=== PATIENT | male | born 1945 | race Caucasian/White ===

== ENCOUNTER → 2018-12-14 | Outpatient (CLI) | payer MEDICARE, OTHER ==
[2018-12-14 09:23] LABS: HEMATOCRIT 48.7 % (42.0-52.0); MCH 30.3 pg (26.0-34.0); MCHC 34.8 g/dL (28.0-37.0); MCV 86.8 fL (80.0-100.0); MPV 7.4 fl. (7.2-11.1); RBC 5.61 mil/uL (4.50-6.00); RDW-CV 13.2 % (10.5-14.5); WBC 6.8 thou/uL (4.0-11.0)
[2018-12-14 09:38] LABS: ALBUMIN 4.1 g/dL (3.4-5.0); ALKALINE PHOSPHATASE 84 U/L (46-116); ANION GAP 10 mmol/L (7-16); BUN 11 mg/dL (7-18); CALCIUM 9.5 mg/dL (8.5-10.1); CHLORIDE 104 mmol/L (98-107); CHOLESTEROL 179 mg/dL (<200); CO2 27 mmol/L (21-32); CREATININE 1.1 mg/dL (0.6-1.3); GLUCOSE 132 mg/dL (70-99); HDL CHOLESTEROL 39 mg/dL (>40); LDL CHOLESTEROL 84 mg/dL (<100); POTASSIUM 4.1 mmol/L (3.5-5.1); SGOT 28 U/L (15-37); SGPT 42 U/L (30-65); SODIUM 141 mmol/L (136-145); TC:HDL 4.6 Ratio (Not establshd); TOTAL BILIRUBIN 0.9 mg/dL (<0.1-1.0); TOTAL PROTEIN 7.8 g/dL (6.4-8.2); TRIGLYCERIDE 281 mg/dL (<150); VLDL 56 mg/dL (<40)
[2018-12-14 10:33] LABS: SERUM ASSESSMENT Clear
== END ==
LOC: M.LAB 08:03
PROVIDERS: Internal Medicine
DX: E11.9 Type 2 diabetes mellitus without complications (principal); E78.5 Hyperlipidemia, unspecified; E03.9 Hypothyroidism, unspecified; Z79.84 Long term (current) use of oral hypoglycemic drugs; Z12.5 Encounter for screening for malignant neoplasm of prostate

== ENCOUNTER 2019-07-13 05:24 | Observation (INO) | payer MEDICARE, OTHER ==
[~2019-07-13] VITALS: Ht 172.7 cm; Wt 95.3 kg
[2019-07-13 05:27] VITALS: BP 173/100
[2019-07-13 05:49] LABS: ABSOLUTE EOSINOPHILS 0.2 thou/uL (0.0-0.7); ABSOLUTE LYMPHOCYTES 2.2 thou/uL (0.8-5.3); ABSOLUTE MONOCYTES 0.5 thou/uL (0.0-1.2); ABSOLUTE NEUTROPHILS 5.4 thou/uL (1.6-8.1); BASOPHILS 0.3 %; EOSINOPHILS 2.3 %; HEMATOCRIT 45.8 % (42.0-52.0); HEMOGLOBIN 15.7 gm/dL (14.0-18.0); LYMPHOCYTES 26.4 %; MCH 28.6 pg (26.0-34.0); MCHC 34.2 g/dL (28.0-37.0); MCV 83.5 fL (80.0-100.0); MONOCYTES 5.8 %; MPV 7.8 fl. (7.2-11.1); NUCLEATED RBCS 0 /100WBC; PLATELET COUNT* 185 thou/uL (150-400); POLYS 65.2 %; RBC 5.49 mil/uL (4.50-6.00); WBC 8.3 thou/uL (4.0-11.0)
[2019-07-13 06:04] LABS: CALCIUM 9.6 mg/dL (8.5-10.1); CREATININE 1.3 mg/dL (0.6-1.3); POTASSIUM 4.2 mmol/L (3.5-5.1)
[2019-07-13 06:15] LABS: ALBUMIN 3.9 g/dL (3.4-5.0); MAGNESIUM 1.9 mg/dL (1.8-2.4); TOTAL BILIRUBIN 0.5 mg/dL (<0.1-1.0)
--- NOTE | 2019-07-13 09:29 | NUR ---
UNABLE TO GIVE PANTOPRAZOLE AT SCHEDULED TIME R/T PHARMACY OUT OF MED
[2019-07-13 09:41] VITALS: BP 142/83
[2019-07-13 14:02] VITALS: BP 128/78
[2019-07-13 14:30] VITALS: BP 142/83
[2019-07-13 15:00] VITALS: BP 117/70
[2019-07-13] MEDS ORDERED: BACLOFEN 10MG T10 MG PO (17:46)
[2019-07-13] MEDS ORDERED: GLIPIZIDE 10 MG10 MG PO (17:48)
[2019-07-13] MEDS ORDERED: GLUCOPHAGE1000 MG PO (17:50)
[2019-07-13] MEDS ORDERED: ZOCOR40 MG PO (17:51)
[2019-07-13] MEDS ORDERED: NEURONTIN300 MG PO (17:51)
[2019-07-13] MEDS ORDERED: LEVO-T50 MCG PO (17:52)
[2019-07-13] MEDS ORDERED: JARDIANCE25 MG PO (17:52)
--- NOTE | 2019-07-13 18:42 | NUR ---
PT ADMITTED TO ROOM 223 AND BROUGHT UP TO FLOOR AT 1500 VIA W/ NURSING STAFF, REPORT RECEIVED FROM DILIP RAMOS. PT STATES HE IS CURRENTLY HAVING NO CHEST PAIN, JUST SOME INDIGESTION. PT ORIENTED TO ROOM AND CALL LIGHT, ADMISSION ASSESSMENT AND HX COMPLETED CHARTED. SEPSIS SCREENING COMPLETED, NEGATIVE. HOME MEDS RECONCILED W/ . 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 PT GOAL IS TO REMAIN FREE FROM CHEST PAIN OVERNIGHT AND DC TO HOME IN THE MORNING, F/U W/ CARDIOLOGY OUTPT FOR STRESS TEST. MED PER APR, HOURLY ROUNDING OBSERVED, PT UP AD LUIS, WILL CONTINUE POC.
[2019-07-13 20:00] VITALS: BP 132/88
[2019-07-14] VITALS (7 sets, daily range): BP systolic 94–122; BP diastolic 54–81
[2019-07-14 05:33] LABS: ABSOLUTE EOSINOPHILS 0.2 thou/uL (0.0-0.7); ABSOLUTE MONOCYTES 0.5 thou/uL (0.0-1.2); ABSOLUTE NEUTROPHILS 3.6 thou/uL (1.6-8.1); BASOPHILS 0.6 %; EOSINOPHILS 3.8 %; HEMATOCRIT 44.8 % (42.0-52.0); HEMOGLOBIN 15.3 gm/dL (14.0-18.0); LYMPHOCYTES 31.4 %; MCH 28.6 pg (26.0-34.0); MCHC 34.2 g/dL (28.0-37.0); MCV 83.6 fL (80.0-100.0); MONOCYTES 7.5 %; MPV 7.9 fl. (7.2-11.1); NUCLEATED RBCS 0 /100WBC; PLATELET COUNT* 197 thou/uL (150-400); POLYS 56.7 %; RBC 5.36 mil/uL (4.50-6.00); RDW-CV 14.2 % (10.5-14.5); WBC 6.4 thou/uL (4.0-11.0)
[2019-07-14 05:52] LABS: ANION GAP 10 mmol/L (7-16); BUN 16 mg/dL (7-18); CALCIUM 8.4 mg/dL (8.5-10.1); CHLORIDE 103 mmol/L (98-107); CHOLESTEROL 169 mg/dL (<200); CO2 26 mmol/L (21-32); GLUCOSE 171 mg/dL (70-99); HDL CHOLESTEROL 36 mg/dL (>40); LDL CHOLESTEROL 58 mg/dL (<100); POTASSIUM 3.6 mmol/L (3.5-5.1); SODIUM 139 mmol/L (136-145); TC:HDL 4.7 Ratio (Not establshd); TRIGLYCERIDE 377 mg/dL (<150); TROPONIN-I LEVEL <0.06 ng/mL (<0.06); VLDL 75 mg/dL (<40)
[2019-07-14 05:53] LABS: SERUM ASSESSMENT Slight Lipemia
--- NOTE | 2019-07-14 06:55 | NUR ---
ASSESSMENTS COMPLETED AT BEDSIDE, PLEASE REFER TO CHARTING. MEDICATIONS ADMINISTERED PER MAR. HOURLY ROUNDING COMPLETED FOR SAFETY. CALL LIGHT WITHIN REACH. ALL NEEDS MET AT THIS TIME.
--- NOTE | 2019-07-14 09:50 | NUR ---
ASSUMED CARE OF PT AT 0730. PT SITTING UP IN RECLINER WAITING FOR BREAKFAST. A&0X4, DENIES ANY PAIN OR SHORTNESS OF BREATH AT THIS TIME. PT STATES HE HAD SOME HEARTBURN OVERNIGHT. PT STATES HE IS READY TO GO HOME. CARDIOLOGY CONSULT IN PLACE. 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 ON RA SAT 98%. PT UP AD LUIS IN ROOM. PT GOAL FOR TODAY IS REMAIN FREE FROM CHEST PAIN AND POSSIBLE DISCHARGE HOME WITH OUTPT STRESS TEST. AM ASSESSMENT CHARTED. MEDICATIONS PER APR. PT REPOSITIONS SELF. HOURLY ROUNDING OBSERVED. BED IN LOW POSITION. CALL LIGHT WITHIN REACH. WILL CONTINUE PLAN OF CARE.
[2019-07-14] MEDS ORDERED: NITROSTAT0.4 M1 SUBLING (10:49)
[2019-07-14] MEDS ORDERED: ASA81BEC PO (10:50)
[2019-07-14] MEDS ORDERED: ACETAMINOPHEN650 M5 PO (10:53)
--- NOTE | 2019-07-14 18:03 | NUR ---
NO ACUTE CHANGES THROUGHOUT SHIFT. REFER TO CHARTING. PT TO HAVE STRESS TEST IN AM PER CARDIOLOGY. PT NPO AFTER MIDNIGHT. PT DENIES ANY CHEST PAIN OR SHORTNESS OF BREATH THROUGHOUT SHIFT. PT UP TO CHAIR FOR MEALS AND ABULATED IN HALLWAY THIS AFTERNOON-TOLERATED WELL. MEDICATIONS PER APR. PT REPOSITIONS SELF. HOURLY ROUNDING OBSERVED. BED IN LOW POSITION. CALL LIGHT WITHIN REACH. WILL CONTINUE PLAN OF CARE.
[2019-07-15 00:10] VITALS: BP 115/64
[2019-07-15 02:08] LABS: GLYCOHEMOGLOBIN (HGB A1C) 8.8 % (4.8-5.6)
[2019-07-15 04:05] VITALS: BP 125/75
--- NOTE | 2019-07-15 06:02 | NUR ---
RECEIVED REPORT AND ASSUMED CARE OF PATIENT AT 1900. VSS. NO ACUTE CHANGES THROUGHOUT SHIFT. ALL ROUNDINGS COMPLETED, ALL NEEDS MET, FULL ASSESSMENT COMPLETED CHARTED.
[2019-07-15 08:12] VITALS: BP 129/76
--- NOTE | 2019-07-15 09:02 | NUR ---
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 PT IS SCHEDULED FOR CARDIAC STRESS TEST TODAY AT 1000 AND HAS BEEN NPO SINCE MIDNIGHT. PT GOAL IS TO COMPLETE STRESS TEST AND THEN WORK ON DC PLANNING TO HOME LONG STRESS TEST COMES BACK NEGATIVE. AM ASSESSMENT CHARTED, MEDS PER MAR, HOURLY ROUNDING OBSERVED, PT IS UP AD LUIS, WILL CONTINUE POC.
[2019-07-15 12:00] VITALS: BP 120/78
--- NOTE | 2019-07-15 12:50 | CON ---
[address] [address] CONSULTATION Name: SARAHY ADAN Room: [address] Luke Rodriguez#: [id number] Admission: 07/13/19 Attend Phys: Alvaro Woods Discharge: Date of : 45 Report #: [id number] THIS REPORT FOR: //name// cc: Jc Rowe MD, Syed MD ~ THIS REPORT FOR: //name// CC: Ernestina Rowe MD DATE OF SERVICE: 07/13/2019 CARDIOLOGY CONSULTATION HISTORY OF PRESENT ILLNESS: The patient is a 74-year-old white male who I was asked to see in the Emergency Room after he complained of chest pain. The patient has no previous history of heart disease. He stays fairly active and apparently had a stress test in the past. He states recently he was taking Jardiance, but developed a discomfort in his lower abdomen. He was taken off Jardiance and the discomfort resolved. He notes that last night he was asleep when at 1:00 in the morning, he awakened with a burning in his chest, went into his jaw. It felt as it is hard to take a deep breath. He felt somewhat nauseated. Denied any diaphoresis. He took some Tums and tried to belch. Discomfort persisted. He finally drove here to [facility]. The discomfort lasted about 4 hours. It is now improved, but still there. He notes about 3 weeks ago, also had burning in his chest, lasted about 2 hours, resolved. He has had no recent blood in the stool or vomiting. He has had no fever or cough. Denied trauma to his chest or rash. He denies exertional dyspnea, palpitations or syncope. He has noted some fatigue recently. PAST MEDICAL HISTORY: He has had a cholecystectomy, thyroid surgery, hemorrhoids surgery. He has a history of diabetes, hyperlipidemia. No history of hypertension. MEDICATIONS: Include metformin, Zocor, glipizide. FAMILY HISTORY: His father had a heart attack. SOCIAL HISTORY: He is . He and his live in [place]. 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 Quit smoking years ago, rarely drinks alcohol. REVIEW OF SYSTEMS: No history of stroke, asthma, liver disease, kidney disease. He had a skin cancer removed in the past. No psychiatric illness. PHYSICAL EXAMINATION: [place] [address] CONSULTATION Name: SARAHY ADAN Room: [address] Jennifer#: [id number] Admission: 07/13/19 Attend Phys: Alvaro Woods Discharge: Date of : 45 Report #: [id number] GENERAL: Revealed an elderly male who appeared in no distress. VITAL SIGNS: Blood pressure 120/70, his pulse was 90. He was afebrile. HEENT: He was anicteric. Conjunctivae pink. Mucous membranes moist. NECK: Veins nondistended. No carotid bruits. CHEST: Clear to auscultation. CARDIOVASCULAR: Regular rate and rhythm. No rub. ABDOMEN: Soft. EXTREMITIES: Had no edema. Posterior tibial pulse 2+ bilaterally. SKIN: Cool and dry. NEUROLOGIC: Nonfocal. RADIOLOGICAL DATA: His ECG showed a sinus rhythm, evidence of previous inferior infarction, but there was no significant ST or T-wave change noted. His workup last night in the Emergency Room, he had a portable chest x-ray that showed normal heart size and clear lung thomas. LABORATORY WORK: Sodium 138, potassium 4.2, creatinine 1.3, glucose 245. His liver function studies were normal. Troponin he had 2 sets less than 0.06. His white blood cell count 8.3, hemoglobin 15.7. IMPRESSION AND RECOMMENDATIONS: 1. Chest pressure. Possible gastroesophageal reflux disease. No evidence of acute myocardial infarction. Recommend observation. If the patient remains stable, we will consider discharging the patient for an outpatient stress test. Because of his abnormal ECG, I would consider a nuclear stress test. 2. Diabetes. 3. Hyperlipidemia. The patient is on a statin drug. <ELECTRONICALLY SIGNED> By: Man Nuno MD, FACC 07/15/19 1250 0915 [id number] Nuno MD, FAC /nt
--- NOTE | 2019-07-15 15:37 | EKG ---
[place] [address] ELECTROCARDIOGRAM REPORT Name: SARAHY ADAN Room: [address] M.R.#: [id number] Admission: 07/13/19 Attend Phys: Ernestina Barriga Discharge: Date of : 45 Date of Service: 07/13/19 0525 Report #: [id number] THIS REPORT FOR: //name// [facility] ED Test Date: 2019-07-13 Test Time: 05:25:49 Pat Name: SARAHY ADAN Department: Room: [facility] Gender: M Gray Tender: : 1945 Requested By: Jcarlos Boogie Order Number: [id number] MD: Mina Adam Measurements Intervals [place] Rate: 87 P: 39 TX: 171 QRS: -70 QRSD: 88 T: 15 QT: 366 QTc: 441 Interpretive Statements Sinus rhythm Abnormal R-wave progression, late transition Inferior infarct, old No previous ECG available for comparison Electronically Signed On 07-15-2019 15:35:24 CDT by Mina Adam [email or web address] <ELECTRONICALLY SIGNED> By: Mina Adam MD, [facility] 07/15/19 1535 0525 0525 Mina Adam MD, [facility] /EPI
--- NOTE | 2019-07-15 15:40 | EKG ---
[place] [address] ELECTROCARDIOGRAM REPORT Name: SARAHY ADAN Room: [address] M.R.#: [id number] Admission: 07/13/19 Attend Phys: Ernestina Barriga Discharge: Date of : 45 Date of Service: 07/14/19 0931 Report #: [id number] THIS REPORT FOR: //name// [facility] Test Date: 2019-07-14 Test Time: 09:31:31 Pat Name: SARAHY ADAN Department: Room: [facility] Gender: M Database Admin: [facility] : 1945 Requested By: Man Nuno Order Number: [id number] MD: Mina Adam Measurements Intervals [place] Rate: 95 P: 55 TX: 152 QRS: 247 QRSD: 93 T: 24 QT: 363 QTc: 457 Interpretive Statements Sinus rhythm Abnormal R-wave progression, late transition Inferior infarct, old Baseline wander in lead(s) I,II,III,aVL,aVF,V2,V3,V6 No previous ECG available for comparison Electronically Signed On 07-15-2019 15:38:31 CDT by Mina Adam [email or web address] <ELECTRONICALLY SIGNED> By: Mina Adam MD, [facility] 07/15/19 1538 0931 0931 Mina Adam MD, [facility] /EPI
--- NOTE | 2019-07-15 17:01 | CARDNUC ---
[place] [address] CARDIAC NUCLEAR IMAGING REPORT Name: SARAHY ADAN Room: [address] M.R.#: [id number] Admission: 07/13/19 Attend Phys: Ernestina Barriga Discharge: Date of : 45 Date of Service: 07/15/19 1700 Report #: [id number] THIS REPORT FOR: cc: Jc Rowe MD, Syed MD Liston, Michael J. MD [facility] ~ APPROVED REPORT Imaging Protocol: Stress Tc-99mm Only Study performed: 07/14/2019 13:19:00 Indication: Chest pain, Dyspnea, Abnormal EKG. Patient Location: In-Patient Stress Tech: Angelia Florian Stress Nurse: Marylu De Jesus RN NM Tech:EDI Harp Ht: 5 ft 8 in Wt: 210 lbs BSA: 2.09 m2 BMI: 31.92 Medical History Medical History: Angina, Diabetic Insulin, Former Smoker, Hyperlipidemia, Obesity , SOB, Nausea, Diaphoresis. Medications: Atorvastatin, ASA 81 Mg, Hydralazine, NTG. Allergies: No known drug allergies Cardiac Risk Factors: Age, Diabetes (insulin), FHX of CAD, Hyperlipidemia, SOB, Past Smoker. Previous Cardiac Procedures: None. Pretest Chest Pain Characteristics: No chest pain Exercise History: Indeterminate Physical Disabilities: Back. Meds Held (24 hrs): NTG. Pharmacologic Stress Pharmacologic stress test was performed by injecting Regadenoson 0.4 mg IV push over 10-15 seconds immediately followed by the intravenous injection of 28.6 mCi of Tc-99m Sestamibi. Time of stress injection: 1045 Date: 07/15/2019 Administration Route: IV Administration Site: Right AC Gated Stress SPECT was performed 40 minutes after stress injection. The images were gated to evaluate regional wall motion and calculate left [place] [address] CARDIAC NUCLEAR IMAGING REPORT Name: SARAHY ADAN [address] [id number] Admission: 07/13/19 Attend Phys: Ernestina Barriga Discharge: Date of : 45 Date of Service: 07/15/19 1700 Report #: [id number] Prone imaging was performed. Stress Test Details Stress Test: Pharmacologic stress was paired with low level exercise. Reason for pharmacologic stress test: arthritis.. HR Max Heart Rate (APMHR): 146 bpm Resting HR: 84 bpm Target HR (85% APMHR): 124 bpm Max HR Achieved: 141 bpm % of APMHR: 96 Recovery HR: 114 bpm BP Resting BP: 124/71 mmHg Max BP: 142/71 mmHg Recovery BP: 125/77 mmHg ECG Resting ECG: Sinus Rhythm Stress ECG: Sinus Tachycardia ST Change: None Arrhythmia: None Recovery ECG: Sinus Rhythm Recovery ST Change: None Recovery Arrhythmia: None Clinical Reason for Termination: Completed protocol. Stress Symptoms: Dyspnea, Lightheaded. Exercise duration: 4 min 00 sec Exercise capacity: 2.30 METs The patient tolerated Lexiscan infusion without significant cardiac symptoms. Nurse Comments A 74 year old male inpatient presented for a walking Nuclear Stress Test r/t chest pain, dyspnea and an ABN EKG. Test well tolerated. Recovery unremarkable with PO caffeine. Patient was escorted by staff via wheelchair to Nuclear Medicine for imaging. Patient was stable and stated he felt good at that time. Stress ECG Conclusion Baseline twelve-lead EKG shows sinus rhythm without significant ST segment or T wave abnormality. EKGs obtained during and post walking Lexiscan protocol shows sinus rhythm and sinus tachycardia with no significant ST segment changes when compared [place] [address] CARDIAC NUCLEAR IMAGING REPORT Name: SARAHY ADAN Room: [address]#: [id number] Admission: 07/13/19 Attend Phys: Ernestina Barriga Discharge: Date of : 45 Date of Service: 07/15/19 1700 Report #: [id number] no stress-induced arrhythmias. Study Quality Study: Good Artifact: No artifact Study Data Post stress, the left ventricular ejection was 71%.. Perfusion Post stress perfusion images show uniform uptake of the radioisotope throughout the myocardium. There were no defects to suggest infarct or ischemia. Wall Motion Normal left ventricular wall motion. Nuclear Conclusion ECG Findings: negative for ischemia Clinical Findings: negative for ischemia Nuclear Findings: negative for ischemia Exercise Capacity: not assessed Left Ventricular Function: normal Risk Study: low Perfusion images show no defect to suggest infarct or ischemia. Left ventricular systolic function appears normal on gated studies. This is a low risk study. <Conclusion> Baseline twelve-lead EKG shows sinus rhythm without significant ST segment or T wave abnormality. EKGs obtained during and post walking Lexiscan protocol shows sinus rhythm and sinus tachycardia with no significant ST segment changes when compared to baseline. There were no stress-induced arrhythmias. <ELECTRONICALLY SIGNED> By: Kevin Martinez MD, FACC 07/15/191699 99 99 Kevin Martinez MD, FACC /INF
[2019-07-15] MEDS ORDERED: PANTOPRAZOLE SO40 M1 PO (17:17)
--- NOTE | 2019-07-15 18:09 | NUR ---
DC ORDERS RECEIVED. DC INSTRUCTIONS, CARE NOTES, SCRIPTS AND F/U APPTS. 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 PT DC'D BY WC W/ NURSING STAFF TO 'S PERSONAL VEHICLE.
== END 2019-07-15 18:10 | disposition home or self-care (01) ==
LOC: M.ERS 05:24 → M.2W 06:43 → M.TBA-ER 06:43 → M.2W 06:43
PROVIDERS: Emergency Medicine Emergency Medical Services; Internal Medicine; ADMIT Internal Medicine; ATTEND Internal Medicine
DX: R07.89 Other chest pain (principal); K21.9 Gastro-esophageal reflux disease without esophagitis; E11.9 Type 2 diabetes mellitus without complications; E03.9 Hypothyroidism, unspecified; E66.9 Obesity, unspecified; R06.02 Shortness of breath; R11.0 Nausea

== ENCOUNTER → 2020-03-18 | Outpatient (CLI) | payer OTHER ==
[~2020-03-18] MED LIST: ACETAMINOPHEN650 M5 PO; ASA81BEC PO; BACLOFEN 10MG T10 MG PO; GLIPIZIDE 10 MG10 MG PO; GLUCOPHAGE1000 MG PO; JARDIANCE25 MG PO; LEVO-T50 MCG PO; NEURONTIN300 MG PO; NITROSTAT0.4 M1 SUBLING; PANTOPRAZOLE SO40 M1 PO; ZOCOR40 MG PO
[2020-03-18 08:34] LABS: HEMATOCRIT 44.8 % (42.0-52.0); HEMOGLOBIN 14.9 gm/dL (14.0-18.0); MCH 27.9 pg (26.0-34.0); MCHC 33.3 g/dL (28.0-37.0); MCV 83.7 fL (80.0-100.0); MPV 7.2 fl. (7.2-11.1); RBC 5.35 mil/uL (4.50-6.00); RDW-CV 14.3 % (10.5-14.5); WBC 7.8 thou/uL (4.0-11.0)
[2020-03-18 08:54] LABS: ALBUMIN 3.8 g/dL (3.4-5.0); ALKALINE PHOSPHATASE 80 U/L (46-116); ANION GAP 9 mmol/L (7-16); BUN 13 mg/dL (7-18); CALCIUM 9.3 mg/dL (8.5-10.1); CHLORIDE 104 mmol/L (98-107); CHOLESTEROL 183 mg/dL (<200); CO2 28 mmol/L (21-32); CREATININE 1.1 mg/dL (0.6-1.3); GLUCOSE 140 mg/dL (70-99); HDL CHOLESTEROL 43 mg/dL (>40); LDL CHOLESTEROL 94 mg/dL (<100); SGOT 25 U/L (15-37); SGPT 35 U/L (30-65); SODIUM 141 mmol/L (136-145); TC:HDL 4.3 Ratio (Not establshd); TOTAL BILIRUBIN 0.4 mg/dL (<0.1-1.0); TOTAL PROTEIN 7.4 g/dL (6.4-8.2); TRIGLYCERIDE 230 mg/dL (<150); VLDL 46 mg/dL (<40)
[2020-03-18 08:55] LABS: SERUM ASSESSMENT Clear
[2020-03-19 02:06] LABS: GLYCOHEMOGLOBIN (HGB A1C) 8.9 % (4.8-5.6)
== END ==
LOC: M.LAB 08:17
PROVIDERS: ATTEND Internal Medicine
DX: E11.9 Type 2 diabetes mellitus without complications (principal); E78.5 Hyperlipidemia, unspecified; E03.9 Hypothyroidism, unspecified; Z12.5 Encounter for screening for malignant neoplasm of prostate